=== PATIENT | male | born 1950 | race Caucasian/White ===

== ENCOUNTER → 2016-11-17 | Outpatient (CLI) | payer MEDICARE, MEDICAID ==
[~2016-11-17] MED LIST: ACCUNEB 0.1.25 MG/1 INH; ADVAIR 100/501 EA INH; ALBUTEROL2.5 MG/0.5 INH; AMOXICILLIN500 M2 PO; ANAPROX DS550 MG PO; ASPIRIN81 M1 PO; BACTRIM DS 8001 TA1 PO; BYETTA10 MCG/0.0 SC; CELEXA20 MG PO; COUMADIN2.5 M1 PO; CYMBALTA30 MG PO; CYMBALTA60 MG PO; DAYPRO600 M1 PO; FEOSOL300 MG PO; Ferrex 150150 MG PO; GABAPENTIN300 M1 PO; GABAPENTIN600 MG PO; GLYBURIDE5 MG PO; HUMALOG100 U/ML SC; HYDR12.5C PO; HYDROCODONE BIT1 T11 PO; INSULIN-HUMA100 U/ML SC; JARDIANCE10 MG PO; KAPIDEX60 MG PO; LANTUS SOLOS100 U/M1 SC; LANTUS100 U/ML SC; LASIX20 MG PO; LISINOPRIL/HCTZ1 TA4 PO; LISINOPRIL20 MG PO; LYRICA150 MG PO; LYRICA75 MG PO; METFORMIN1000 MG PO; NATURE'S BLEND F1 MG PO; NEURONTIN300 MG PO; OMEPRAZOLE MAGN20 MG PO; PLAVIX75 MG PO; PREVACID30 MG PO; SANTYL250 U/GM T; VICODIN ES 7501 TAB PO; VITAMIN D50000 I2 PO; Vicodin 5/500 505 MG PO; XANAX0.5 MG PO; [UNRECOGNIZED DRUG - OTHER]; [UNRECOGNIZED DRUG - OTHER] PO
== END | disposition home or self-care (01) ==
LOC: US 14:13
DX: M79.605 Pain in left leg (principal); M79.604 Pain in right leg

== ENCOUNTER 2017-06-13 12:19 | Emergency (ER) | payer MEDICARE, MEDICAID ==
[2017-06-13 13:43] VITALS: BP 129/77
[2017-06-13] MEDS ORDERED: CEPHALEXIN500 M1 PO (13:46)
== END 2017-06-13 13:54 | disposition home or self-care (01) ==
LOC: ED 12:19
DX: L03.115 Cellulitis of right lower limb (principal); E11.9 Type 2 diabetes mellitus without complications; M86.9 Osteomyelitis, unspecified; Z79.4 Long term (current) use of insulin; Z79.899 Other long term (current) drug therapy

== ENCOUNTER → 2017-06-18 | Outpatient (CLI) | payer MEDICARE, MEDICAID ==
[~2017-06-18] MED LIST changes: +CEPHALEXIN500 M1 PO
== END | disposition home or self-care (01) ==
LOC: NM 10:00
DX: M86.8X7 Other osteomyelitis, ankle and foot (principal); Z89.421 Acquired absence of other right toe(s)

== ENCOUNTER 2017-10-13 03:57 | Inpatient (IN) | payer MEDICARE, MEDICAID ==
--- NOTE | 2017-10-12 08:14 | NUR ---
PHYSICAL THERAPY Nursing screen for PT received. Orders for PT present. Samantha Myers,PT
[~2017-10-13] VITALS: Ht 170.1 cm; Wt 75.8 kg
[2017-10-13] VITALS (17 sets, daily range): BP systolic 132–1162; BP diastolic 69–97
--- NOTE | ~2017-10-13 | WRIGHTHP ---
[place], [place] PATIENT HISTORY AND PHYSICAL EXAM NAME: SHOBHA MURILLO [facility] #: [id number] UNIT #: [id number] ROOM: [facility] DOCTOR: SHAHANA COOMBS MD BIRTHDATE: [birth year] DOS: 10/13/2017 HISTORY OF PRESENT ILLNESS: The patient is 66 years old. The patient is very well known to us. He was admitted to [facility] in July with cellulitis of the right leg, underwent revascularization and he was discharged to home. He continued to get worse and was admitted to [facility] twice with congestive heart failure and pneumonia. He was placed on IV meropenem last visit and he was transferred to . While in , the patient states that he did not receive any of the IV antibiotics because they were unable to give it to him. So, he was transferred to [facility] yesterday. He denies having any chest pains or palpitations. He does have increasing shortness of breath. Denies having any nausea, any emesis, any fever or chills. PAST MEDICAL HISTORY: Significant for: 1. Chronic diabetic neuropathy with poorly healing wound, status post below-knee amputation, left; right metatarsal amputation; poorly healing wounds on the right ankle area. 2. Type 2 diabetes mellitus, insulin-dependent, poorly controlled. 3. Chronic kidney disease stage 3. 4. Benign hypertension. 5. Noncompliance with poor insight to medical problems. 6. Peripheral vascular disease. MEDICATIONS: He is supposed to receive meropenem, which he has not received for the last 3 days; aspirin 81 mg daily; atorvastatin 40 daily; Plavix 75 daily; Colace 100 b.i.d.; duloxetine 60 daily; gabapentin 600 q. 8; lisinopril 20 daily; Protonix 40 daily; tramadol 50 q. 8; Lantus 20 units subQ twice a day and coverage scale. SOCIAL HISTORY: Nonsmoker, does not use any alcohol. PHYSICAL EXAMINATION: GENERAL: The patient is awake and alert and oriented. VITAL SIGNS: Blood pressure is 154/87, pulse of 120, respirations 28, temperature 97.8. LUNGS: Diminished breath sounds. No wheezes, rales or rhonchi heard. HEART: Regular. ABDOMEN: Obese, soft, nontender. EXTREMITIES: Below-knee amputation of the left leg. The wounds are healed. Metatarsal amputation of the right foot with poorly healing wounds on the right lateral malleolar area, which are mostly stage I lesions. LABORATORY DATA: At the time of admission, chest x-ray which shows atelectasis, moderate pulmonary edema, patchy airspace disease with possibility of CHF or superimposed lower lobe pneumonia. Lactic acid is 1.6. WBC count is 6.6, hemoglobin 8.9, hematocrit 27.5. Protime 10.8. Comprehensive glucose 273, BUN 28, creatinine 0.97, sodium 135, potassium 4.2, chloride 98, bicarbonate 27, calcium 9.0, albumin 2.8. SGOT 17, SGPT 22, alkaline phosphatase 131. ProBNP 2900. Troponin 0.015. [place], [place] PATIENT HISTORY AND PHYSICAL EXAM NAME: SHOBHA MURILLO [facility] #: [id number] UNIT #: [id number] ROOM: [facility] DOCTOR: SHAHANA COOMBS MD BIRTHDATE: [birth year] ASSESSMENT AND PLAN: 1. The patient who presents with increasing shortness of breath, acute respiratory distress syndrome. The patient has been admitted to ICU. Chest x-ray showed congestive heart failure, most likely acute diastolic congestive heart failure. The patient will have an echocardiogram ordered and IV diuretics were already given in the ER. 2. History of chronic kidney disease stage 3, GFR is improved to more than 60. Stage of kidney disease has now become stage 2. 3. Type 2 diabetes mellitus, insulin-dependent, better controlled after his previous amputation. 4. Possibility of left lower lobe pneumonia. CT of the chest is being ordered. I will continue with the meropenem which he was supposed to receive at the group home. We also tried to request records. 5. Diabetic peripheral neuropathy, continue Neurontin and Ultram. SHAHANA COOMBS MD CM:HISPHYS:PATIENT HISTORY AND PHYSICAL EXAMINATION 9 SHAHANA COOMBS MD 10/13/17939 interface
--- NOTE | ~2017-10-13 | PR ---
[place], [place] PROGRESS NOTE NAME: SHOBHA MURILLO [facility] #: [id number] UNIT #: [id number] ROOM: [facility] DOCTOR: SHAHANA COOMBS MD BIRTHDATE: [birth year] DOS: 10/14/2017 SUBJECTIVE: The patient feels much better. He had a CT scan yesterday, which showed large bilateral pleural effusion. was consulted and thoracentesis was performed, about 1 liter of pleural fluid was removed bilaterally. He does not have any chest pains or palpitations. Cough is improving. PHYSICAL EXAMINATION: VITAL SIGNS: Today pressure is 130/84, pulse 104, respirations 18, temperature 98.2. LUNGS: Diminished breath sounds, clearer this morning. HEART: Regular. ABDOMEN: Obese, soft, nontender. EXTREMITIES: Below-knee amputation, leg; right, metatarsal amputation. LABORATORY DATA: Blood sugars, the last couple of readings 216. ASSESSMENT AND PLAN: 1. The patient admitted with acute hypoxic respiratory failure with bilateral large pleural effusions, there is most likely some underlying diastolic congestive heart failure. Echocardiogram is pending. The patient did undergo thoracentesis and clinically, he is much better. Chest x-ray will be ordered today. 2. CT shows small bilateral pneumonia with atelectasis. We will continue meropenem for right now. 3. Adult failure to thrive. Discussed with case management. The patient has used up his skill days and is unable to return to the [facility]. The patient will need to go home. PT, OT and Keno Writer have been consulted for discharge planning. SHAHANA COOMBS MD CM:PNTRANS [phone] SHAHANA COOMBS MD 10/14/17 2761 interface
--- NOTE | ~2017-10-13 | DS ---
[place], [place] DISCHARGE SUMMARY NAME: SHOBHA MURILLO [facility] #: [id number] UNIT #: [id number] ROOM: 504 DOCTOR: SHAHANA COOMBS MD BIRTHDATE: [birth year] DOS: 10/16/2017 DIAGNOSES: 1. Acute diastolic congestive heart failure. 2. Bilateral pleural effusions, status post thoracentesis. 3. Atelectasis with possible small pneumonia, bilateral. 4. Type 2 diabetes mellitus, insulin-dependent. 5. History of kidney disease. Kidney functions have normalized. 6. Benign hypertension, with normal left ventricular function. 7. Peripheral vascular disease with history of below knee amputation, left; metatarsal amputation, right foot and poorly healing wounds on the right lateral malleolus. 8. Anemia, iron deficiency, chronic. MEDICATIONS ON DISCHARGE: Ceftin 250 twice daily for 5 days, iron 324 daily, lisinopril 20 daily, duloxetine 60 daily, Plavix 75 daily, gabapentin 600 q. 8 hours., Arginaid powder twice a day, Lipitor 40 daily, aspirin 81 daily, Colace 100 b.i.d., sliding scale insulin 10 units with meals, DuoNeb q. 4 hours, Protonix 40 daily, Proventil p.r.n., tramadol 1 q. 8 hours p.r.n., Tylenol 650 q. 4 hours p.r.n., Lantus 25 units twice a day and Lasix 40 mg daily. HOSPITAL COURSE: This patient is very well known to us. He is currently a resident at [facility] in [place]. The patient had been sent to [facility] twice in the last few weeks, was sent back last week with diagnosis of pneumonia, was placed on IV meropenem. [facility] He did not receive any more IV antibiotics because they did not have staff to give it to him. He came back to Emergency Room here acutely short of breath and in acute hypoxic respiratory failure. He was evaluated and diagnosed with possibility of pneumonia and was admitted. After admission, the meropenem was continued, but a CT of the chest was ordered which showed that he had bilateral large pleural effusions. Dr. White was consulted and the patient underwent a thoracentesis and about 1 liter fluid was removed from each side. After that the patient has felt better. Repeat chest x-ray showed improvement in the pulmonary edema and small atelectasis was noted, which could be hiding small pneumonia, so the meropenem was continued. The patient does not have any fever, no white cell count. PT/OT has been consulted as well as Social Service for discharge planning. Assessment for home O2 was done, which did not make him qualified for home oxygen. Social Service noted that the patient will not qualify for skilled anymore, he has used up ____. The plan therefore is to discharge him to home. Blood cultures have come back negative. Kidney functions are stable and his white cell count is normal. He is anemic, which is chronic iron deficiency and I have started him back on iron supplements. The patient will have visiting nurses, PT, OT for home care and otherwise he is stable and has achieved his maximum benefit from stay here. He has very small poorly healing wounds of his right lateral malleolus for which Bactroban ointment can be used. [place], [place] DISCHARGE SUMMARY [facility]: [facility] [id number] UNIT #: [id number] ROOM: [facility] DOCTOR: SHAHANA COOMBS MD BIRTHDATE: [birth year] SHAHANA COOMBS MD CM:DISCHJIM 7 [phone] SHAHANA COOMBS MD 10/16/17847 interface
--- NOTE | ~2017-10-13 | PR ---
[place], [place] PROGRESS NOTE NAME: SHOBHA MURILLO [facility] #: [id number] UNIT #: [id number] ROOM: 504 DOCTOR: SHAHANA COOMBS MD BIRTHDATE: [birth year] DOS: SUBJECTIVE: The patient says he is finally able to breathe well. He does not have any complaints today. OBJECTIVE: Graphic trend shows that he is afebrile, blood pressure is 132/70, pulse of 98, respirations 20, temperature 98.9. LUNGS: Clear. HEART: Regular. ABDOMEN: Obese, soft, nontender. EXTREMITIES: Without any edema on the right, below knee amputation on the left. LABORATORY DATA: Echocardiogram, which is a limited study, LV function is 50% with mild to moderate mitral regurg. MRSA of the nares was negative. ASSESSMENT AND PLAN: 1. A large bilateral pleural effusion, status post thoracentesis by Dr. White. The patient is stable and improved. 2. Small bilateral pneumonia with atelectasis, on IV meropenem, which will be continued. 3. Adult failure to thrive. The plan is to discharge him to home tomorrow on p.o. antibiotics. SHAHANA COOMBS MD CM:JANAE [phone] SHAHANA COOMBS MD 10/15/1713 interface
--- NOTE | ~2017-10-13 | PR ---
[place], [place] PROGRESS NOTE NAME: SHOBHA MURILLO [facility] #: [id number] UNIT #: [id number] ROOM: 504 DOCTOR: SHAHANA COOMBS MD BIRTHDATE: [birth year] DOS: SUBJECTIVE: The patient is not having any complaints today. OBJECTIVE: Graphic trend shows that he is afebrile, blood pressure is 133/67, pulse of 98, respirations 20, temperature 98.4. LUNGS: Clear. HEART: Regular. ABDOMEN: Obese, soft. EXTREMITIES: Decreased edema on the right leg, left below knee amputation. LABORATORY DATA: Exercise oximetry did not show any desaturation. Glucose 128, BUN 32, creatinine 1.17. GFR more than 60. Electrolytes fairly normal. WBC count is 4.1, hemoglobin 7.7, platelets 207. Blood cultures were negative. Chest x-ray showed improved pulmonary edema. ASSESSMENT AND PLAN: 1. Acute diastolic congestive heart failure with bilateral pleural effusion, status post thoracentesis and diuresis, doing very well. 2. Acute hypoxic respiratory failure, resolved. He does not qualify for O2 for home. 3. Benign hypertension, controlled. 4. Type 2 diabetes mellitus. Blood sugars are fairly controlled. Occasional high numbers were noted and advised and encouraged to eat better. 5. Adult failure to thrive. He does not qualify for placement back to [facility]. He will need to be discharged to home with visiting nurses, PT, OT. SHAHANA COOMBS MD CM:PNTRANS [phone] SHAHANA COOMBS MD 10/16/17835 interface
[~2017-10-13 03:57] MED LIST changes: +LANTUS SOL100 UNIT/1 SQ; +MERREM IV500 MG IV; +PLAVIX75 M1 PO
--- NOTE | 2017-10-13 04:30 | NUR ---
PT MEDICATED FOR NAUSEA PER DOCTORS ORDERS. PT RESTING IN BED. WILL CONTINUE TO MONITOR.
--- NOTE | 2017-10-13 04:45 | NUR ---
PT STATES THAT THE MEDICATION GIVEN PROVIDED RELIEF OF NAUSEA. PT RESTING IN BED. NO NEW ORDERS AT THIS TIME. WILL CONTINUE TO MONITOR.
[2017-10-13 05:19] LABS: BASO % 0.3 % (0.0-1.0); EOS # 0.1 10*3/uL (0.0-0.4); EOS % 1.1 % (1.0-4.0); HEMATOCRIT 27.5 % (42.0-52.0); HEMOGLOBIN 8.9 g/dl (14.0-18.0); LYMPH % 14.7 % (27.0-41.0); MEAN CELL VOLUME 90.5 fl (80.0-94.0); MEAN CORPUSCULAR HGB 29.3 pg (27.0-31.0); MEAN CORPUSCULAR HGB CONC 32.4 g/dl (33.0-37.0); MEAN PLATELET VOLUME 9.3 fl (9.6-12.3); MONO # 0.7 10*3/uL (0.1-1.0); MONO % 10.5 % (3.0-9.0); NEUT # 4.8 10*3/uL (2.3-7.9); NEUT % 72.9 % (47.0-73.0); PLATELET COUNT AUTOMATED 245 10*3/uL (130-400); RED BLOOD COUNT 3.04 10*6/uL (4.50-5.90); RED CELL DISTRI WIDTH 17.2 % (0-14.5); WHITE BLOOD COUNT 6.6 10*3/uL (4.8-10.8)
[2017-10-13 05:29] LABS: ACT PARTIAL THROMBO TIME 29.5 SECONDS (20.8-31.5)
[2017-10-13 05:37] LABS: ALBUMIN 2.8 gm/dl (3.1-4.5); ALKALINE PHOSPHATASE 131 U/L (45-117); BUN 28 mg/dl (7-24); CHLORIDE 98 mmol/L (98-107); CREATININE 0.97 mg/dL (0.70-1.30); POTASSIUM 4.2 mmol/L (3.5-5.1); SGOT/AST 17 IU/L (3-35); SGPT/ALT 22 U/L (12-78); SODIUM 135 mmol/L (136-145); TOTAL PROTEIN 7.3 gm/dL (6.4-8.2)
[2017-10-13 05:40] LABS: TROPONIN I < 0.015 ng/ml (<0.045)
--- NOTE | 2017-10-13 06:45 | NUR ---
A 66 YEAR OLD MALE admitted to ICCU, under the services of SHAHANA Browne MD with a diagnosis of CHF. Chief complaint is LOW PULSE OX AT [facility]. Patient arrived via stretcher from ER. Monitor applied. Initial assessment completed. Vital signs taken and recorded. SHAHANA BROWNE MD notified of admission to the unit. Orders received. See assessment for past medical history, medications and allergies. Patient and/or family oriented to unit. [facility]U visitation policy reviewed. Clothing/patient valuable form completed. TYLER CHANEY
[2017-10-13] MEDS ORDERED: ARGINAID POWDE1 EACH PO (07:13)
[2017-10-13] MEDS ORDERED: ASPIRIN ADULT L81 M2 PO (07:13)
[2017-10-13] MEDS ORDERED: LIPITOR40 MG PO (07:14)
[2017-10-13] MEDS ORDERED: DOCUSATE SODIU100 M2 PO (07:15)
--- NOTE | 2017-10-13 07:26 | NUR ---
DR. COOMBS CALLED FOR ADMITTING ORDERS. ON HER WAY HERE. PT HAS DRIED SCABBED AREAS ON R ANKLE.
[2017-10-13] MEDS ORDERED: HUMALOG100 UNIT/1 SQ ×2 (07:36→07:41)
--- NOTE | 2017-10-13 07:37 | NUR ---
REMOVED DRESSINGS THAT WERE ON RIGHT ANKLE AND R HEEL FROM LONG TERM. STATES THAT THEY ARE HEALING WOUNDS.
[2017-10-13] MEDS ORDERED: DUONEB 3 MG/3 ML3 M1 INH (07:42)
[2017-10-13] MEDS ORDERED: PROTONIX40 MG PO (07:47)
[2017-10-13] MEDS ORDERED: PROVENTIL HFA6.7 GM INH (07:49)
[2017-10-13] MEDS ORDERED: TRAMADOL HCL50 MG PO (07:51)
[2017-10-13] MEDS ORDERED: TYLENOL325 M1 PO (07:53)
--- NOTE | 2017-10-13 08:06 | NUR ---
MED REC UPDATED PER [facility] PAPERS. SPOKE WITH NURSE AT [facility] &CLARIFIED A FEW MEDS. DR COOMBS HERE AND CODE STATUS IS A FULL CODE THE PATIENT IS REQUESTING EVERYTHING BE TRIED. DETAILS DISCUSSED AND HE SAID TRY ONCE. NC4L IN PLACE - SATS 88-90% WITH ACTIVITY BUT MID 90'S WHILE AT REST
--- NOTE | 2017-10-13 08:13 | NUR ---
Shift chart check completed.
--- NOTE | 2017-10-13 08:30 | NUR ---
SCIENTIFIC TECHNICAL WRITER VS. PT CAME FROM [facility]. STATES HIS TIME THERE IS UP ON AND HE WAS TO GO HOME. SON IS COMING FROM OUT OF TOWN TO HELP HIM SET UP AT HOME. HAS [address] [facility]. STATES HE WAS TO HAVE [facility] SET UP FOR DC. PLANS TO RETURN TO [facility] IF DC BY WEDNESDAY. PER TREY AT [facility], PT WILL NOT BE ACCEPTED BACK HE OWES MONEY AND IS NOT GOING TO PAY. DC C PYTHON DEVELOPER WILL TALK TO PT AND MAKE HIM AWARE.
--- NOTE | 2017-10-13 09:00 | NUR ---
LATEENTRY - PATIENT REFUSING BATH AT THIS TIME
--- NOTE | 2017-10-13 10:46 | NUR ---
PHYSICAL THERAPY Nursing screen received on this patient. Chart review reveals PT referral appropriate. Requested PT orders at d/c planning. Samantha Myers,PT
--- NOTE | 2017-10-13 11:01 | NUR ---
In to see patient to discuss return to [facility]. He stated he only has one more medicare day remaining and if he stays there they will force him to sign over his monthly paycheck. He stated he can't afford to give up his check to them so he is not returning. His son is going to put heat in his mobile home and get his wheelchair from [facility]. [facility] did tell me that the patient cannot return unless he signs a payment agreement so i discussed with patient again, he stated he is not returning. There will not be a bed available at [facility] for this patient after today.
--- NOTE | 2017-10-13 11:21 | NUR ---
ADMISSION WOUND PICTURES TAKEN ALL MEASUREMENTS DONE BY [facility] WOUND NURSE. PER THE PATIENT THE POSTERIOR ACHILLES WAS INITALLY STARTED FROM RUBBING ON THE SCREWS ON HIS WHEEL CHAIR. PER THE PATIENT THESE ARE CHRONIC. ALL WERE PRESENT ON ADMISSION BUT WERE LISTED SCABS HOWEVER PER WOUND NURSES THEY ARE HARD ESCHAR STAGE 4. RT FOOT HAS HARD DRY SKIN SO LAC-HYTRIN ORDERED.
--- NOTE | 2017-10-13 13:18 | NUR ---
SHOBHA MURILLO [id number] Please refer to the physician's history and physical for past medical history, comorbid conditions, and allergies. Diagnosis: CHF HCAP Daniel Score: 20,LOW OR NO RISK WOUND DESCRIPTIONS: Location of the wound: Proximal lateral lower right leg Type of wound: unstagable Thickness: Full Size: 2.3cm x 0.7cm x <0.1cm Tunneling: none Undermining: none Sinus Tract: none Presence of Exudate: Amount: None Color: Yellow Odor: None Periwound Skin Appearance: Erythema Wound edges: closed Pain (associated with wound): patient denied at time of assessment How does patient state this happened? patient is unsure how this happened. Capillary refill <3 seconds Location of the wound: Distal lateral lower right leg Type of wound: unstagable Thickness: Full Size: 2.3cm x 1.6cm x <0.1cm Tunneling: none Undermining: none Sinus Tract: none Presence of Exudate: Amount: None Color: Yellow Odor: None Periwound Skin Appearance: Erythema Wound edges: closed Pain (associated with wound): patient denied at time of assessment How does patient state this happened? patient is unsure how this happened Location of the wound: Proximal posterior lower right leg Type of wound: unstagable Thickness: Full Size: 1cm x 1.5cm x <0.1cm Tunneling: none Undermining: none Sinus Tract: none Presence of Exudate: none Amount: None Color: Yellow Odor: None Periwound Skin Appearance: Erythema Wound edges: closed Pain (associated with wound): patient denied at time of assessment How does patient state this happened? patient unsure how this happened Location of the wound: Posterior distal right lower leg Type of wound: unstagable Thickness: Full Size: 2cm x 2.3cm x <0.1cm Tunneling: none Undermining: none Sinus Tract: none Presence of Exudate: none Amount: None Color: Yellow Odor: None Periwound Skin Appearance: Erythema Wound edges: closed Pain (associated with wound): patient denied at time of assessment' How does patient state this happened? Surface the patient is resting on: Isoflex SKIN PREVENTION RECOMMENDATION: 1. Pressure redistribution support surface as appropriate 2. Elevate heels 3. Remove boots/TEDS every shift and reapply 4. Head of bed 30 degrees as tolerated 5. Assess nutrition and hydration 6. Manage moisture 7. Avoid the use of containment devices while in bed 8. Use absorptive products on surfaces limit layers of linens on bed 9. Turn and reposition every 1-2 hours in bed and every 1 hour in chair as tolerated 10. Weight shifts every 15 minutes while up in chair 11. Offloading with pillows or device to keep heels elevated off bed 12. Monitor skin at least every shift 13. Inspect under medical devices twice a day WOUND TREATMENT RECOMMENDATIONS: Right lower leg wounds: Cleanse wounds with NSS. Apply sureprep and allow to dry. Apply therahoney and cover with optifoam gentle. Lac-Hydrin 5% to foot only.
--- NOTE | 2017-10-13 13:46 | NUR ---
PHYSICAL THERAPY PAtient requests no PT this date. Thank you for this referral. Samantha Myers,PT
--- NOTE | 2017-10-13 13:46 | NUR ---
Patient approached for Occupational Therapy evaluation this date in [facility]. Patient reports that he was at [facility] prior to admission to [facility] and that he has had "enough therapy" but that OTR could return tomorrow to attempt evaluation. Nursing reports that patient [facility] bed [facility]. OTR will attempt at a later date. Thank you for this referral. Elizabeth Cadena OTR/Bhaskar
--- NOTE | 2017-10-13 14:00 | NUR ---
PATIENT AWARE OF THORACENTESIS. ULTRAM GIVEN FOR C/O HEADACHE.
--- NOTE | 2017-10-13 15:00 | NUR ---
LATE ENTRY - PATIENT DOZINGOFF &ON SINCE 1430. ULTRAM EFFECTIVE
--- NOTE | 2017-10-13 15:55 | NUR ---
RETURNED FROM ULTRASOUND AFTER THORACENTESIS. PT TOLERATED WELL W/ MIN RT SHOULDER DISCOMFORT AFTER THE RIGHT SIDE DONE BUT DISCOMFORT RESOLVED. DR RILEY AT BEDSIDE DURING DISCOMFORT. VSS IMMEDIATELY POST.
--- NOTE | 2017-10-13 17:14 | NUR ---
VITAL SIGNS STABLE SINCE BILAT THORACENTESIS. BANDAIDS TO BILAT SITES CLEAN & DRY. OCC COUGH./
[2017-10-14] VITALS: BP 130/70
[2017-10-14 04:00] VITALS: BP 130/84
[2017-10-14 08:00] VITALS: BP 133/86
[2017-10-14 10:20] LABS: BASO % 0.3 % (0.0-1.0); EOS # 0.1 10*3/uL (0.0-0.4); EOS % 1.9 % (1.0-4.0); HEMATOCRIT 27.1 % (42.0-52.0); HEMOGLOBIN 8.9 g/dl (14.0-18.0); LYMPH # 0.6 10*3/uL (1.3-4.4); LYMPH % 9.3 % (27.0-41.0); MEAN CELL VOLUME 89.4 fl (80.0-94.0); MEAN CORPUSCULAR HGB 29.4 pg (27.0-31.0); MEAN CORPUSCULAR HGB CONC 32.8 g/dl (33.0-37.0); MEAN PLATELET VOLUME 9.2 fl (9.6-12.3); MONO # 0.6 10*3/uL (0.1-1.0); MONO % 9.8 % (3.0-9.0); NEUT % 78.4 % (47.0-73.0); PLATELET COUNT AUTOMATED 238 10*3/uL (130-400); RED BLOOD COUNT 3.03 10*6/uL (4.50-5.90); RED CELL DISTRI WIDTH 16.8 % (0-14.5); WHITE BLOOD COUNT 6.3 10*3/uL (4.8-10.8)
[2017-10-14 10:32] LABS: BUN 24 mg/dl (7-24); CHLORIDE 96 mmol/L (98-107); POTASSIUM 3.9 mmol/L (3.5-5.1); SODIUM 135 mmol/L (136-145)
--- NOTE | 2017-10-14 11:05 | NUR ---
Occupational Therapy evaluation completed this date in ICCU with full eval to follow. Precautions include fall risk, ICCU, O2 use, IV UE, L BKA, moderate complexity level 06191. Recommend return home at w/c ht, patient is independent in the home and needs min a at hospital for bathing, set up and hospital environment. Patient demonstrates 4+/5 BUE strength. At this time no further OT indicated. Thank you for this referral. Elizabeth Cadena OTR/L
--- NOTE | 2017-10-14 11:06 | NUR ---
PHYSICAL THERAPY PAtient evaluated in ICCU, full evaluation to follow. Continue with PT as per plan of care with fall, min (A) and acute debility precautions. Qualifies for SNF but insist on home. Recommend complete home health services. PAtient is high complexity via chart review, tests and evaluation: 15519. Thank you for this referral. Samantha Myers,PT
[2017-10-14 12:00] VITALS: BP 147/84
--- NOTE | 2017-10-14 13:32 | NUR ---
PHYSICAL THERAPY Maurice was seen this PM 1:1 for his therapy session. Pt is a left BKA. Transfer supine/sit supervision X 1, and sitting balance, X 6 min. Followed by sit to stand MOD A X 1, X 3, with sitting rest after each standing balance with wheeled walker and was pleased with that. Said that he did better then he thought he was going to do. HR after standing 111 BPM, Pt back supine, with call light YVONNE ANN FREELANCE WRITER.
--- NOTE | 2017-10-14 15:42 | NUR ---
SW SPOKE WITH PT AND HE WANTS [facility] UPON DISCHARGE.
[2017-10-14 16:00] VITALS: BP 147/78
--- NOTE | 2017-10-14 17:37 | NUR ---
REPORT TO 5E RN
--- NOTE | 2017-10-14 18:09 | NUR ---
PT ARRUIVED TO FLOOR FROM ICU.
--- NOTE | 2017-10-14 18:55 | NUR ---
DR JJ CALLED IN AND WILL SEE PT IN AM
[2017-10-14 20:00] VITALS: BP 125/60
[2017-10-15] VITALS: BP 157/57
--- NOTE | 2017-10-15 05:49 | NUR ---
PRN ULTRAM GIVEN FOR PT. C/O RT. FOOT PAIN, WILL MONITOR EFFECT.
--- NOTE | 2017-10-15 06:52 | NUR ---
PRN ULTRAM SEEMS EFFECTIVE, PT. IS SLEEPING COMFORTABLY WITH CALL LIGHT IN REACH. RESPERS ARE EASY AND REGULAR.
[2017-10-15 08:00] VITALS: BP 135/80
--- NOTE | 2017-10-15 08:33 | NUR ---
DR COOMBS ROUNDED AND ORDERS RECIEVED.
--- NOTE | 2017-10-15 09:33 | NUR ---
PHYSICAL THERAPY Maurice seen this AM X 2, ask me to come back later. Then when i came back Pt sleeping sound. YVONNE ANN PUBLIC RELATIONS ANALYST.
[2017-10-15 12:00] VITALS: BP 122/64
--- NOTE | 2017-10-15 12:30 | NUR ---
PT HAS AMPUTATED LEG. 6 MINUTE WALK WAS MODIFIED TO PIVOTING WHILE STANDING AT THE BEDSIDE AND WHEELING HIMSELF IN THE WHEEL CHAIR I PROVIDED FOR HIM. I HAD TO DO SPOT CHECKS HE COULD NOT WHEEL WITH IT ON HIS FINGER AND WOULD NOT PATIENT SCHEDULING COORDINATOR WHILE ON HIS EAR. 1105- BP-122/64, SPO2-96, HR-105 AT REST I WORKED WITH THE PT UNTIL 1127. HIS O2 DID NOT DROP BELOW 89% AND STAYED AROUND 91% HR-110 BP-138/74
--- NOTE | 2017-10-15 12:36 | NUR ---
PHYSICAL THERAPY Back this PM 1:1 for Maurice's therapy session and is improving from yesterday. Transfer supine/sit, sitting balance independent. Sit/stand and up on standard walker for standing balance X 4, with MIN FAMILY SOCIOLOGIST X 1, with much improvement from yesterday, with sitting rest after each stand. Maurice was pleased with his progress. YVONNE ANN PLANE TABLEMAN.
--- NOTE | 2017-10-15 13:39 | NUR ---
Patient to be discharged to home with home health via [facility] tomorrow. Received order, faxed clincals to
[2017-10-15 16:00] VITALS: BP 132/69
--- NOTE | 2017-10-15 18:25 | NUR ---
DRESSING CHANGE TO RIGHT LOWER ANKLE COMPLETED PER PHYSICIAN ORDER. SCANT DRAINAGE NOTED WITH YELLOW CRUST TO WOUND SITE. PT TOLERATED WELL. VOICES NO OTHER NEEDS AT THIS TIME.CALL [facility] IN REACH.
[2017-10-15 20:00] VITALS: BP 115/66
--- NOTE | 2017-10-15 23:42 | NUR ---
PATIENT MEDICATED WITH PRN ULTRAM ORDERED FOR C/O RIGHT FOOT PAIN RATED AN 8/10
[2017-10-16] VITALS: BP 133/67
--- NOTE | 2017-10-16 03:04 | NUR ---
24 HOUR CHART CHECK COMPLETE
--- NOTE | 2017-10-16 05:00 | NUR ---
SLEEPING, NO SXS OF DISTRESS. RESPIRATIONS EASY/REG. CALL LIGHT IN REACH. WILL MONITOR.
[2017-10-16 06:00] LABS: BASO % 0.7 % (0.0-1.0); EOS # 0.3 10*3/uL (0.0-0.4); EOS % 6.6 % (1.0-4.0); HEMATOCRIT 23.8 % (42.0-52.0); HEMOGLOBIN 7.7 g/dl (14.0-18.0); LYMPH # 0.8 10*3/uL (1.3-4.4); LYMPH % 20.4 % (27.0-41.0); MEAN CELL VOLUME 87.8 fl (80.0-94.0); MEAN CORPUSCULAR HGB 28.4 pg (27.0-31.0); MEAN CORPUSCULAR HGB CONC 32.4 g/dl (33.0-37.0); MONO # 0.7 10*3/uL (0.1-1.0); MONO % 15.8 % (3.0-9.0); NEUT # 2.3 10*3/uL (2.3-7.9); NEUT % 56.3 % (47.0-73.0); PLATELET COUNT AUTOMATED 207 10*3/uL (130-400); RED BLOOD COUNT 2.71 10*6/uL (4.50-5.90); RED CELL DISTRI WIDTH 16.6 % (0-14.5); WHITE BLOOD COUNT 4.1 10*3/uL (4.8-10.8)
[2017-10-16 06:23] LABS: BUN 32 mg/dl (7-24); CHLORIDE 95 mmol/L (98-107); CREATININE 1.17 mg/dL (0.70-1.30); SODIUM 135 mmol/L (136-145)
[2017-10-16 08:00] VITALS: BP 124/59
--- NOTE | 2017-10-16 08:00 | NUR ---
IN BED RESTING QUIETLY. NO S/S OF DISTRESS. DENIES ANY C/O. SEE ASSESS. WILL CONT TO MONITOR. DR COOMBS IN TO SEE PT. CALL LIGHT IN REACH.
[2017-10-16] MEDS ORDERED: CEFUROXIME AXE250 MG PO ×2 (08:11→08:21)
[2017-10-16] MEDS ORDERED: LANTUS SOL100 UNIT/1 SQ (08:11)
[2017-10-16] MEDS ORDERED: FERROUS GLUCON324 MG PO (08:13)
[2017-10-16] MEDS ORDERED: LASIX40 MG PO (08:21)
--- NOTE | 2017-10-16 10:00 | NUR ---
DISCHARGED AT THIS TIME. IV'S REMOVED FROM BOTH ARMS AND PRESSURE DRESSINGS APPLIED. HEART MONITOR RETURNED TO FLOOR. VERBALIZED UNDERSTANDING OF DISCHARGE INSTRUCTIONS.
--- NOTE | 2017-10-18 07:46 | NUR ---
PHYSICAL THERAPY CO-SIGN I approve of the Phyical Therapy notes written above. NINOSKA RIVERA PT
== END 2017-10-16 10:00 | disposition home health service (06) | DRG 291 ==
LOC: ED 03:57 → ICCU 05:28 → 5E 05:28 → EDHOLD 05:28 → ICCU 05:32 → 5E 10-14 17:29
PROVIDERS: Student in an Organized Health Care Education/Training Program; ADMIT Internal Medicine
DX: I13.0 Hypertensive heart and chronic kidney disease with heart failure and stage 1 through stage 4 chronic kidney disease, or unspecified chronic kidney disease (principal); J96.01 Acute respiratory failure with hypoxia; J90 Pleural effusion, not elsewhere classified; E11.22 Type 2 diabetes mellitus with diabetic chronic kidney disease; J18.9 Pneumonia, unspecified organism; E11.42 Type 2 diabetes mellitus with diabetic polyneuropathy; I50.31 Acute diastolic (congestive) heart failure; J98.11 Atelectasis; E11.65 Type 2 diabetes mellitus with hyperglycemia; Z66 Do not resuscitate; E11.51 Type 2 diabetes mellitus with diabetic peripheral angiopathy without gangrene; N18.3 Chronic kidney disease, stage 3 (moderate); D50.9 Iron deficiency anemia, unspecified; R62.7 Adult failure to thrive; Z89.512 Acquired absence of left leg below knee; Z79.4 Long term (current) use of insulin; Z89.021 Acquired absence of right finger(s); Z90.49 Acquired absence of other specified parts of digestive tract; Z98.42 Cataract extraction status, left eye

== ENCOUNTER → 2017-10-25 | Outpatient (CLI) | payer MEDICARE, MEDICAID ==
[~2017-10-25] MED LIST changes: +ARGINAID POWDE1 EACH PO; +ASPIRIN ADULT L81 M2 PO; +CEFUROXIME AXE250 MG PO; +DOCUSATE SODIU100 M2 PO; +DUONEB 3 MG/3 ML3 M1 INH; +FERROUS GLUCON324 MG PO; +HUMALOG100 UNIT/1 SQ; +LASIX40 MG PO; +LIPITOR40 MG PO; +PROTONIX40 MG PO; +PROVENTIL HFA6.7 GM INH; +TRAMADOL HCL50 MG PO; +TYLENOL325 M1 PO
== END | disposition home or self-care (01) ==
LOC: WOUNDCARE 11:11
DX: E11.622 Type 2 diabetes mellitus with other skin ulcer (principal); L97.311 Non-pressure chronic ulcer of right ankle limited to breakdown of skin; E11.51 Type 2 diabetes mellitus with diabetic peripheral angiopathy without gangrene; I10 Essential (primary) hypertension; Z87.891 Personal history of nicotine dependence; Z89.512 Acquired absence of left leg below knee

== ENCOUNTER 2017-11-04 12:25 | Emergency (ER) | payer MEDICARE, MEDICAID ==
[~2017-11-04] VITALS: Ht 170.1 cm; Wt 74.4 kg
[2017-11-04 13:06] LABS: BASO % 0.1 % (0.0-1.0); EOS % 0.1 % (1.0-4.0); HEMATOCRIT 26.5 % (42.0-52.0); HEMOGLOBIN 8.8 g/dl (14.0-18.0); LYMPH # 0.9 10*3/uL (1.3-4.4); LYMPH % 6.6 % (27.0-41.0); MEAN CORPUSCULAR HGB 28.6 pg (27.0-31.0); MEAN CORPUSCULAR HGB CONC 33.2 g/dl (33.0-37.0); MEAN PLATELET VOLUME 10.2 fl (9.6-12.3); MONO # 1.1 10*3/uL (0.1-1.0); MONO % 7.8 % (3.0-9.0); NEUT % 84.5 % (47.0-73.0); PLATELET COUNT AUTOMATED 255 10*3/uL (130-400); RED BLOOD COUNT 3.08 10*6/uL (4.50-5.90); RED CELL DISTRI WIDTH 15.3 % (0-14.5); WHITE BLOOD COUNT 14.2 10*3/uL (4.8-10.8)
[2017-11-04 13:07] VITALS: BP 94/47
[2017-11-04 13:16] LABS: ACT PARTIAL THROMBO TIME 46.6 SECONDS (20.8-31.5)
[2017-11-04 13:23] LABS: ALBUMIN 3.1 gm/dl (3.1-4.5); ALKALINE PHOSPHATASE 100 U/L (45-117); BUN 123 mg/dl (7-24); CHLORIDE 91 mmol/L (98-107); SGOT/AST 20 IU/L (3-35); SGPT/ALT 20 U/L (12-78); SODIUM 126 mmol/L (136-145); TOTAL PROTEIN 7.4 gm/dL (6.4-8.2)
[2017-11-04 13:29] LABS: TROPONIN I < 0.015 ng/ml (<0.045)
== END 2017-11-04 14:40 | disposition short-term general hospital (02) ==
LOC: ED 12:25
PROVIDERS: Emergency Medicine
DX: I21.3 ST elevation (STEMI) myocardial infarction of unspecified site (principal); N17.9 Acute kidney failure, unspecified; E11.10 Type 2 diabetes mellitus with ketoacidosis without coma; I50.9 Heart failure, unspecified; E11.65 Type 2 diabetes mellitus with hyperglycemia; I10 Essential (primary) hypertension; E11.21 Type 2 diabetes mellitus with diabetic nephropathy; I95.9 Hypotension, unspecified; Z90.49 Acquired absence of other specified parts of digestive tract; Z79.82 Long term (current) use of aspirin; Z79.899 Other long term (current) drug therapy

== ENCOUNTER 2017-11-19 13:49 | Inpatient (IN) | payer MEDICARE, MEDICAID ==
[~2017-11-19] VITALS: Ht 170.2 cm; Wt 75.9 kg
--- NOTE | ~2017-11-19 | O ---
[place], [place] OPERATIVE NOTE NAME: SHOBHA MURILLO UNIT #: [id number] ROOM: [facility] DOCTOR: DANI ZARCO,KARTHIKEYAN BIRTHDATE: [birth year] DOS: 11/22/2017 COLONOSCOPY PROCEDURE: Today's procedure as part of investigation of anemia of hemoglobin of 7, hematocrit of 21 is colonoscopy. PREMEDICATION: Versed and Diprivan. SCOPE: Olympus folding colonoscope 10L video. REPORT: After putting the patient in left lateral position and application of lubricant to the scope, the scope was introduced; thereafter, under direct visualization, I advanced the length of colon without difficulty. ____ at the point which appears to be cecum, which appears to express appendiceal orifice and ileocecal anastomosis surgically intact is noticed. However, it looks that part of the cecum has been resected. If cannot be with certainty say how much of the ascending colon has been resected. However, scope was negotiated into the terminal ileum and advanced staplings evidence was noticed. The patient extubated after photographic series and tolerated procedure well. IMPRESSION: Partial resection of the cecum and ileocecal anastomosis. PLAN AND DISCUSSION: Now, I did not see any evident source of bleeding. The patient's anemia could be multifactorial in addition to the aspirin, Plavix and Lovenox that he was on Continuation with Protonix, transfusion as necessary and clinical reassessment solid food today, 1800 ADA. KARTHIKEYAN LOUISE MD CM:OPRECORD:OPERATIVE NOTE 1155 1230 KARTHIKEYAN LOUSIE MD 11/22/17 1229 interface
--- NOTE | ~2017-11-19 | CON ---
[place], [place] REPORT OF CONSULTATION NAME: SHOBHA MURILLO [facility] #: [id number] UNIT #: [id number] ROOM: [facility]- DOCTOR: LEONA LOUISE MDNELSONSAMARA BIRTHDATE: [birth year] DOS: 11/22/2017 GASTROENDOSCOPIC REPORT HISTORY OF PRESENT ILLNESS: A 66-year-old patient who was presented with multiple medical problems, among which has been hyperglycemia with glucose of about 689 and exceeded even 700. He was having anemia of H and H of 8 and 25 with BUN and creatinine of 44 and 1.69, GFR of 50, hyponatremia of sodium of 124. Potassium of 6.3. Triglyceridemia of 322, normal cholesterol. Liver function tests essentially unremarkable except alkaline phosphatase of 170. CBC differential was followed, H and H dropped to 7 and 21, status post multi-transfusion. His serum ketone was negative. His lactic acid was 1.3. CBC differential within normal limit. Comprehensive metabolic panel again reassessed. Hyponatremia continued. His latest sodium has been corrected to 131 with H and H of 9, 4 and 27, status post 2 units transfusion. He has been on aspirin and Plavix. His platelet function test was evaluated and platelet function test was 89. PAST MEDICAL HISTORY: Associated with diabetes mellitus, renal insufficiency, systemic hypertension, peripheral vascular disease, diabetic neuropathy. PAST SURGICAL HISTORY: Right metatarsal amputation, left BKA, cholecystectomy, appendectomy. SOCIAL HISTORY: Nonsmoker, has stopped smoking since last January and nonalcohol consumer. FAMILY HISTORY: Noncontributory. ALLERGIES: To no known medications. MEDICATIONS: List has been reviewed including Plavix, Colace, aspirin and Protonix. REVIEW OF SYSTEMS: HEENT: Denies double vision, blurred vision. RESPIRATORY: Denies acute shortness of breath. CARDIOVASCULAR: Denies acute chest pain. DIGESTIVE SYSTEM: Nausea, epigastric distress. No hematemesis, no hematochezia. PHYSICAL EXAMINATION: VITAL SIGNS: Stable. HEENT: Head normocephalic, nontraumatic. Mouth and buccal mucosa benign. NECK: Supple, no thyromegaly. CHEST: Symmetric anatomy, equal expansion. Few scattered rhonchi. HEART: Normal sinus rhythm, no gallop, no murmur. ABDOMEN: Soft. No hepato-organomegaly. Bowel sounds present. EXTREMITIES: No cyanosis, no pedal edema. Left BKA, no edema. Right metatarsal amputation, no edema. No ulceration. [place], [place] REPORT OF CONSULTATION NAME: SHOBHA MURILLO UNIT #: [id number] ROOM: [facility] DOCTOR: DANI ZARCO,KARTHIKEYAN BIRTHDATE: [birth year] NEUROLOGIC: Alert, oriented to time, place, person. Sensory, motor intact. Cranial nerves 2-12 intact. IMPRESSION: Anemia, drop in H and H to 7 and 21, status post multi-transfusion, renal insufficiency, diabetes mellitus uncontrolled, congestive heart failure, peripheral vascular disease, systemic hypertension. PLAN AND DISCUSSION: I am going to organize EGD and colonoscopy today. KARTHIKEYAN LOUISE MD CM:CONSTR:REPORT OF CONSULTATION 1131 11/22/17 1720 interface
--- NOTE | ~2017-11-19 | WRIGHTHP ---
[place], [place] PATIENT HISTORY AND PHYSICAL EXAM NAME: SHOBHA MURILLO [facility] #: [id number] UNIT #: [id number] ROOM: [facility] DOCTOR: CIERRA TORRES MD BIRTHDATE: [birth year] DOS: 11/19/2017 HISTORY OF PRESENT ILLNESS: The patient is a 66-year-old gentleman with a past medical history of: 1. Type 2 diabetes mellitus. 2. Chronic diastolic-type congestive heart failure. 3. Diabetic nephropathy. 4. Benign essential hypertension. 5. Peripheral vascular disease with left below-knee amputation and distal amputation of right foot. 6. Iron deficiency anemia and anemia of chronic disease. 7. Hyperlipidemia. 8. Chronic constipation. The patient presented to [facility] when he was sent by his PCP, Dr. Beth Newell for elevated blood sugars. In the ER, the patient's blood sugar was found to be 689. BUN and creatinine were elevated to 44 and 1.69. The patient states that she ate too much. She had eaten 2 kettles of lasagna and also drank orange juice before this happened. The patient's potassium level was found to be 6.3 and hemoglobin had ____. The patient without chest pain, shortness of breath. No other GI or urinary symptoms. REVIEW OF SYSTEMS: LUNGS: Without increasing shortness of breath or wheezing. GASTROINTESTINAL: No nausea, vomiting, diarrhea or constipation. CARDIOVASCULAR: No chest pains or palpitations. LUNGS: No shortness of breath or wheezing. FAMILY HISTORY: Noncontributory. SOCIAL HISTORY: Denies smoking cigarettes, alcohol, and drug abuse. HOME MEDICATIONS: Lisinopril, Cymbalta, Plavix, Lipitor, aspirin, Protonix, gabapentin, insulin, Colace, tramadol. ALLERGIES: No known drug allergies. FAMILY HISTORY: Noncontributory. PHYSICAL EXAMINATION: GENERAL: The patient is alert and oriented x 3, in no visible distress. HEENT AND NECK: Extraocular movements are intact. Sclerae are anicteric. Oral mucosa is moist and clean. No obvious facial weakness. Neck is supple without any lymphadenopathy. No thyromegaly. No JVD. No carotid arterial bruits. LUNGS: Clear to auscultation. No wheezing. No rhonchi. CARDIOVASCULAR SYSTEM: Heart rate is regular in rate and rhythm. S1 and S2 normally audible. No significant murmur or any other abnormal cardiac sounds. [place], [place] PATIENT HISTORY AND PHYSICAL EXAM [facility]: [id number] UNIT #: [id number] ROOM: [facility] DOCTOR: CIERRA TORRES MD BIRTHDATE: [birth year] ABDOMEN: Soft, nontender. No obvious organomegaly. Bowel sounds are present. No obvious herniation. EXTREMITIES: Left below-knee amputation and amputation of the distal right foot with a healing ulcer at the back of the right ankle. CENTRAL NERVOUS SYSTEM: Alert and oriented x 3. Cranial nerves II-XII are intact. Speech is normal. The patient is able to move all extremities. Normal muscle strength. Deep tendon reflexes are equal on both sides. Plantars were downgoing. LABORATORY DATA: BUN and creatinine 41 and 1.3, improved from 44 and 1.7 at admission; hyperkalemia, 6.3 potassium on admission, normal after treatment and hydration. Hemoglobin reduced to 7.1 as compared to 8.5 at admission. IMPRESSION: 1. The patient presenting with severe hyperglycemia related to noncompliance with diet and he is a type 2 diabetic. The patient started on insulin infusion and later on coverage and his blood sugars have improved to 90, which is normal. The patient being hydrated with normal saline because of dehydration related to severe hyperglycemia and glucosuria. The patient is starting to feel better. 2. Severe hyperkalemia related to severe hyperglycemia, improved with hydration and repeat potassium level is normal. 3. [id number] stage 3a kidney disease with kidney function improving with hydration with normal saline. 4. Mild protein-calorie malnutrition related to his severe diabetes and poor compliance with diet. 5. Drop in hemoglobin ____ to a hemoglobin of 7.1. The patient apparently has iron deficiency anemia and anemia of chronic disease and apparently his hemoglobin has at least partly dropped because of hydration and it is dilutional, but I will consider GI bleed and I am checking stool for iFOBT. 5. Benign essential hypertension with controlled blood pressures. 6. Chronic diastolic-type congestive heart failure, compensated. 7. Mixed hyperlipidemia treated and followed the patient on Lipitor. 8. Benign essential hypertension. Blood pressure is being treated with lisinopril. 9. Gastroesophageal reflux disease and esophagitis, controlled with Protonix. 10. Major depression, recurrent, moderate, treated and controlled with Cymbalta. [place], [place] PATIENT HISTORY AND PHYSICAL EXAM NAME: SHOBHA MURILLO UNIT #: [id number] ROOM: [facility] DOCTOR: CIERRA TORRES MD BIRTHDATE: [birth year] CIERRA TORRES MD CM:HISPHYS:PATIENT HISTORY AND PHYSICAL EXAMINATION 1602 35 CIERRA TORRES MD 11/20/172135 interface
--- NOTE | ~2017-11-19 | O ---
[place], [place] OPERATIVE NOTE [id number] #: [id number] ROOM: [facility]- DOCTOR: DANI ZARCO,KARTHIKEYAN BIRTHDATE: [birth year] DOS: 11/22/2017 GASTROENDOSCOPIC REPORT INDICATIONS: The patient has presented with anemia, status post transfusion with the renal failure, hyperglycemia, and congestive heart failure. PROCEDURE: Today's procedure part of investigation of anemia to hemoglobin of 7, hematocrit of 21 is panendoscopy and colonoscopy. PREMEDICATION: Versed and Diprivan. SCOPE: Olympus forwarding gastroscope Q10 video. REPORT: After putting the patient in left lateral position and application of lubricant to the scope, the scope was introduced. Thereafter, under direct visualization, advanced through the length of esophagus without difficulty. Esophagus, cervical, thoracic distal carefully examined. Gastric pouch was entered. Gastritis was noticed. This is more concentrated in the antral anatomy. Photograph was obtained. Biopsy obtained for H. pylori. Duodenal bulb, second and third part within normal limit. The patient extubated, tolerated procedure well. IMPRESSION: Gastritis, status post biopsy. PLAN AND DISCUSSION: The patient has been on ferrous sulfate, Lovenox, aspirin and Plavix combination. We are going to proceed with a colonoscopic evaluation. Thank you very much indeed. KARTHIKEYAN LOUISE MD CM:OPRECORD:OPERATIVE NOTE 1155 1223 KARTHIKEYAN LOUISE MD 11/22/17 1223 interface
--- NOTE | ~2017-11-19 | DS ---
[place], [place] DISCHARGE SUMMARY NAME: SHOBHA MURILLO [facility] #: [id number] UNIT #: [id number] ROOM: 415 DOCTOR: CIERRA TORRES MD BIRTHDATE: [birth year] DOS: DATE OF DISCHARGE: 11/22/2017 DISCHARGE DIAGNOSES: 1. Severe hyperglycemia with uncontrolled type 2 diabetes mellitus. 2. Anemia of iron deficiency and from dilution of the blood, improved with blood transfusion. GI workup as an outpatient. 3. Chronic diastolic type congestive heart failure. 4. Diabetic nephropathy. 5. Benign essential hypertension. 6. Peripheral vascular disease, but with left below below-knee amputation and right distal foot amputation. 7. History of iron deficiency anemia and anemia of chronic disease. 8. Mixed hyperlipidemia. 9. Chronic constipation. HOSPITAL COURSE: 1. The patient admitted when he presented to the Emergency Department, sent over by his primary care physician, Dr. Beth Newell for severe hyperglycemia. The patient's blood sugar was as high as 689 in the Emergency Department and BUN and creatinine elevated to 44 and 1.69. The patient was started on IV insulin infusion and also hydration with normal saline. The patient said he had eaten 2 kettles of lasagna and also drank orange juice before his sugars went so high. The patient was admitted to the ICU and insulin infusion was converted to sliding scale of regular insulin every 4 hours. The patient's blood sugars first dropped into 200 and now they are into 100s and well controlled. The patient appears to be well rehydrated. 2. Severe hyperkalemia with potassium level of 6.3 related to fluid imbalance, dehydration from severe hyperglycemia and glucosuria. His potassium levels have normalized. 3. Acute over chronic kidney disease and diabetic nephropathy with elevation of creatinine to 1.69, has come back to baseline with hydration with normal saline. 4. Type 2 diabetes mellitus, uncontrolled with poor compliance with treatment. 5. Drop in H and H. Apparently dilutional and he also has history of iron deficiency anemia and anemia of chronic disease, which all contributed to his hemoglobin dropped to 7.1. I ordered a stool for occult blood, but they have not been performed apparently because he has not had a bowel movement. The patient's hemoglobin has improved to 8.4 from 7[address] Hobbs, animal attendant ordered a blood transfusion. The patient's hemoglobin is stable and should be rechecked at his office visit with his PCP, Dr. Beth Newell on Wednesday and Dr. Hobbs if he clears the patient for discharge. The patient can go home and then he can perform an outpatient GI workup for the anemia. Apparently, Dr. Hobbs has decided to do an endoscopy including EGD and colonoscopy tomorrow morning after which the patient can be discharged if he is cleared by Dr. Hobbs. 5. Chronic diastolic type, compensated congestive heart failure. 6. Benign essential hypertension with controlled blood pressures. 7. Major depression, recurrent, moderate, treated and controlled with Cymbalta. 8. Mixed hyperlipidemia treated and controlled with Lipitor. [place], [place] DISCHARGE SUMMARY NAME: SHOBHA MURILLO UNIT #: [id number] ROOM: [facility] DOCTOR: CIERRA TORRES MD BIRTHDATE: [birth year] 9. Mild protein calorie malnutrition related to severe diabetes, poor compliance with diet and overall poor health. Considering his age, acute over chronic stage 3 kidney disease, recovered with hydration, normal saline, apparently acute failure was secondary to dehydration and was vascular type, acute kidney failure, which has coverage. 10. Gastroesophageal reflux disease and esophagitis treated with Protonix. LABORATORY DATA: Normal serum electrolytes, BUN and creatinine 32 and 1.2, blood sugar 183, generally staying in the 100s. Hemoglobin improved to 8.5. DISCHARGE MANAGEMENT: Lisinopril 20 mg daily, Cymbalta 60 mg a day, Plavix 75 mg a day, Lipitor 40 mg a day, aspirin 81 mg a day, Protonix 40 mg a day, gabapentin 600 mg 3 times a day, Levemir insulin 25 units subq every 12 hours, Colace 100 mg b.i.d., tramadol 50 mg every 8 hours p.r.n. for pain, DuoNeb q.i.d. p.r.n. for shortness of breath. Follow up with his PCP, Dr. Beth Newell on Wednesday and endoscopy by Dr. Hobbs tomorrow and then he can be discharged if cleared by Dr. Hobbs, repeat hemoglobin in the morning. ADDENDUM To discharge summary which I dictated on 11/21/2017. SUBJECTIVE: Patient is doing well. He says he can easily go home because he can live with his sister and get his water lines unfrozen with a heater at home, that is not an issue and he does not need to go to nursing home for that, which was being arranged by [employer]. OBJECTIVE: VITAL SIGNS: Blood pressure 132/80, heart rate of 92 beats per minute, breathing 18 times per minute, temperature 98 degrees Fahrenheit. GENERAL APPEARANCE: The patient is alert and oriented x 3, in no visible distress. HEENT AND NECK: Exam within normal limits. CARDIOVASCULAR SYSTEM: Heart rate is regular in rate and rhythm. S1 and S2 normally audible. LUNGS: Clear to auscultation. ABDOMEN: Soft, nontender. No obvious organomegaly. Bowel sounds are present. EXTREMITIES: Patient has left below-knee amputation and right distal foot amputation. IMPRESSION: 1. Patient is stable. Blood sugars are ranging between 150-200 mostly, occasionally higher. No episodes of severe hyper or hypoglycemia. Patient says that he can easily go home. Patient's severe hyperglycemia was due to poor dietary compliance resolved with treatment. Patient says he ambulates well with his prosthesis which is at home and he is completely comfortable in going home. Patient was apparently kept at the hospital because he complained to [employer] about frozen lines at home. Patient says he can stay with his daughter and also get his lines unfrozen with a space heater and that is not an issue and he can go home. 2. Acute over chronic kidney disease and diabetic nephropathy. Creatinine has [place], [place] DISCHARGE SUMMARY NAME: SHOBHA MURILLO UNIT #: [id number] ROOM: [facility] DOCTOR: CIERRA TORRES MD BIRTHDATE: [birth year] dropped from 1.69 to normal at 1.17. 3. Benign essential hypertension with controlled blood pressures. 4. Major depression, recurrent, mild, treated and controlled with Cymbalta. 5. Mixed hyperlipidemia, treated with Lipitor. 6. Chronic constipation, treated with Colace. CIERRA TORRES MD CM:DISCHJIM [id number] CIERRA TORRES MD 11/24/17 1828 interface
[2017-11-19 14:00] VITALS: BP 133/80
[2017-11-19 14:23] LABS: BASO # 0.1 10*3/uL (0.0-0.1); BASO % 0.5 % (0.0-1.0); EOS # 0.1 10*3/uL (0.0-0.4); EOS % 1.2 % (1.0-4.0); HEMATOCRIT 23.3 % (42.0-52.0); LYMPH % 10.3 % (27.0-41.0); MEAN CELL VOLUME 83.5 fl (80.0-94.0); MEAN CORPUSCULAR HGB 28.7 pg (27.0-31.0); MEAN CORPUSCULAR HGB CONC 34.3 g/dl (33.0-37.0); MEAN PLATELET VOLUME 9.9 fl (9.6-12.3); MONO # 0.5 10*3/uL (0.1-1.0); MONO % 5.4 % (3.0-9.0); NEUT # 7.8 10*3/uL (2.3-7.9); NEUT % 82.2 % (47.0-73.0); PLATELET COUNT AUTOMATED 254 10*3/uL (130-400); RED BLOOD COUNT 2.79 10*6/uL (4.50-5.90); RED CELL DISTRI WIDTH 15.3 % (0-14.5); WHITE BLOOD COUNT 9.5 10*3/uL (4.8-10.8)
[2017-11-19 14:32] LABS: ACT PARTIAL THROMBO TIME 28.7 SECONDS (20.8-31.5); INTERNATIONAL NORM RATIO 0.9 (2.0-3.5)
[2017-11-19 14:40] LABS: ALBUMIN 2.9 gm/dl (3.1-4.5); ALKALINE PHOSPHATASE 174 U/L (45-117); BUN 47 mg/dl (7-24); CHLORIDE 87 mmol/L (98-107); CREATININE 1.71 mg/dL (0.70-1.30); SGOT/AST 13 IU/L (3-35); SGPT/ALT 24 U/L (12-78); SODIUM 123 mmol/L (136-145); TOTAL PROTEIN 8.1 gm/dL (6.4-8.2)
[2017-11-19 14:45] LABS: TROPONIN I < 0.015 ng/ml (<0.045)
[2017-11-19 14:46] LABS: POTASSIUM 6.3 mmol/L (3.5-5.1)
[2017-11-19 14:59] LABS: BILIRUBIN NEGATIVE (NEGATIVE); BLOOD NEGATIVE (NEGATIVE); CLARITY CLEAR (CLEAR); COLOR YELLOW (YELLOW); GLUCOSE 3+ (NEGATIVE); KETONE NEGATIVE (NEGATIVE); LEUKO ESTERASE NEGATIVE (NEGATIVE); NITRITE NEGATIVE (NEGATIVE); SPECIFIC GRAVITY <= 1.005 (1.005-1.030); UROBILINOGEN 0.2 E.U./dl (0.2-1.0)
[2017-11-19 15:09] LABS: BACTERIA TRACE; MUCOUS TRACE
[2017-11-19 15:10] LABS: EPITHELIAL CELLS 0-2; WBC 0-2 wbc/hpf (0-5)
[2017-11-19 15:41] VITALS: BP 120/70
[2017-11-19 16:36] VITALS: BP 127/77
[2017-11-19 16:45] VITALS: BP 143/81
[2017-11-19] MEDS ORDERED: NORCO 7.5-3251 EACH PO (17:55)
[2017-11-19] MEDS ORDERED: ALPRAZOLAM0.5 M3 PO (17:56)
[2017-11-19] MEDS ORDERED: METFORMIN1000 MG PO (18:00)
[2017-11-19] MEDS ORDERED: LANTUS SOL100 UNIT/1 SC (18:01)
[2017-11-19] MEDS ORDERED: Bactroban Oint22 GM T (18:06)
[2017-11-19] MEDS ORDERED: MAGNESIUM OXID400 MG PO (18:10)
[2017-11-19] MEDS ORDERED: TAMSULOSIN HCL0.4 MG PO (18:11)
[2017-11-19] MEDS ORDERED: Lopressor25 MG PO (18:12)
[2017-11-19] MEDS ORDERED: OMEPRAZOLE20 M2 PO (18:14)
[2017-11-19] MEDS ORDERED: REMERON30 M1 PO (18:16)
[2017-11-19] MEDS ORDERED: NATURE'S BLEND F1 MG PO (18:18)
[2017-11-19] MEDS ORDERED: GLIPIZIDE10 M2 PO (18:26)
[2017-11-19 20:00] VITALS: BP 120/70
[2017-11-20] VITALS (20 sets, daily range): BP systolic 107–160; BP diastolic 50–79
[2017-11-20 06:27] LABS: BASO # 0.1 10*3/uL (0.0-0.1); BASO % 0.9 % (0.0-1.0); EOS # 0.2 10*3/uL (0.0-0.4); EOS % 3.9 % (1.0-4.0); HEMATOCRIT 21.1 % (42.0-52.0); HEMOGLOBIN 7.1 g/dl (14.0-18.0); LYMPH # 1.6 10*3/uL (1.3-4.4); LYMPH % 28.5 % (27.0-41.0); MEAN CELL VOLUME 85.1 fl (80.0-94.0); MEAN CORPUSCULAR HGB 28.6 pg (27.0-31.0); MEAN CORPUSCULAR HGB CONC 33.6 g/dl (33.0-37.0); MEAN PLATELET VOLUME 9.3 fl (9.6-12.3); MONO # 0.4 10*3/uL (0.1-1.0); MONO % 7.6 % (3.0-9.0); NEUT # 3.3 10*3/uL (2.3-7.9); NEUT % 58.6 % (47.0-73.0); PLATELET COUNT AUTOMATED 251 10*3/uL (130-400); RED BLOOD COUNT 2.48 10*6/uL (4.50-5.90); RED CELL DISTRI WIDTH 15.5 % (0-14.5); WHITE BLOOD COUNT 5.7 10*3/uL (4.8-10.8)
[2017-11-20 06:48] LABS: BUN 41 mg/dl (7-24); CHLORIDE 103 mmol/L (98-107)
[2017-11-20 07:09] LABS: CREATININE 1.31 mg/dL (0.70-1.30)
[2017-11-20 07:18] LABS: POTASSIUM 4.1 mmol/L (3.5-5.1); SODIUM 139 mmol/L (136-145)
[2017-11-21] VITALS (10 sets, daily range): BP systolic 98–155; BP diastolic 44–90
[2017-11-21 05:53] LABS: HEMATOCRIT 24.6 % (42.0-52.0); HEMOGLOBIN 8.5 g/dl (14.0-18.0)
[2017-11-21 06:05] LABS: BUN 32 mg/dl (7-24); CHLORIDE 100 mmol/L (98-107); CREATININE 1.26 mg/dL (0.70-1.30); POTASSIUM 4.1 mmol/L (3.5-5.1); SODIUM 137 mmol/L (136-145)
[2017-11-22] VITALS (11 sets, daily range): BP systolic 108–131; BP diastolic 57–82
[2017-11-22 05:40] LABS: BUN 24 mg/dl (7-24); CHLORIDE 102 mmol/L (98-107); CREATININE 1.17 mg/dL (0.70-1.30); POTASSIUM 3.6 mmol/L (3.5-5.1); SODIUM 137 mmol/L (136-145)
[2017-11-22 05:55] LABS: HEMATOCRIT 27.7 % (42.0-52.0); HEMOGLOBIN 9.4 g/dl (14.0-18.0)
[2017-11-23] VITALS: BP 111/63
[2017-11-23 08:00] VITALS: BP 117/67
[2017-11-23 12:00] VITALS: BP 125/68
[2017-11-23 16:00] VITALS: BP 132/80
== END 2017-11-23 18:07 | disposition home health service (06) | DRG 683 ==
LOC: ED 13:49 → EDHOLD 15:13 → ICCU 15:13 → 4E 11-23 14:17
PROVIDERS: Internal Medicine; Internal Medicine Gastroenterology; Nurse Practitioner Family
DX: N17.9 Acute kidney failure, unspecified (principal); I13.0 Hypertensive heart and chronic kidney disease with heart failure and stage 1 through stage 4 chronic kidney disease, or unspecified chronic kidney disease; E11.22 Type 2 diabetes mellitus with diabetic chronic kidney disease; E11.40 Type 2 diabetes mellitus with diabetic neuropathy, unspecified; E44.1 Mild protein-calorie malnutrition; I50.32 Chronic diastolic (congestive) heart failure; F33.1 Major depressive disorder, recurrent, moderate; E87.1 Hypo-osmolality and hyponatremia; E86.0 Dehydration; N18.3 Chronic kidney disease, stage 3 (moderate); E11.65 Type 2 diabetes mellitus with hyperglycemia; E87.5 Hyperkalemia; K29.70 Gastritis, unspecified, without bleeding; E11.51 Type 2 diabetes mellitus with diabetic peripheral angiopathy without gangrene; D50.9 Iron deficiency anemia, unspecified; K21.0 Gastro-esophageal reflux disease with esophagitis; E78.5 Hyperlipidemia, unspecified; K59.09 Other constipation; D63.8 Anemia in other chronic diseases classified elsewhere; E78.2 Mixed hyperlipidemia; Z89.512 Acquired absence of left leg below knee; Z89.431 Acquired absence of right foot; Z79.899 Other long term (current) drug therapy; Z91.11 Patient's noncompliance with dietary regimen; Z98.42 Cataract extraction status, left eye; Z90.89 Acquired absence of other organs; Z79.82 Long term (current) use of aspirin; Z90.49 Acquired absence of other specified parts of digestive tract; Z83.3 Family history of diabetes mellitus; Z68.26 Body mass index [BMI] 26.0-26.9, adult; Z79.4 Long term (current) use of insulin